=== PATIENT | female | born 1985 | race Caucasian/White ===

== ENCOUNTER 2017-02-08 19:28 | Emergency (ER) | payer OTHER, MEDICAID ==
[~2017-02-08] VITALS: Ht 170.2 cm; Wt 103.3 kg
[2017-02-08] MEDS ORDERED: SODIUM CHLORIDE 0.9% 1,000 ML IV ONE (19:47)
[2017-02-08] MEDS ORDERED: SODIUM CHLORIDE 0.9% 1,000ML IVBOLUS ONE (20:00)
[2017-02-08] MEDS ORDERED: ONDANSETRON 2MG/ML, 2ML IVPush ONE (20:00)
[2017-02-08] MEDS ORDERED: PREN1TAB27 PO (20:14)
[2017-02-08 20:16] LABS: BLOOD UREA NITROGEN 17 mg/dL (7-18)
[2017-02-08] MEDS ORDERED: ONDANSETRON 2MG/ML, 2ML ONE (20:42)
[2017-02-08] MEDS ORDERED: CEFTRIAXONE PMX 1GM/50ML 50 ML ONE (21:53)
[2017-02-08] MEDS ORDERED: CEFTRIAXONE PMX 1GM/50ML 50 ML IV ONE (22:00)
[2017-02-08 23:43] VITALS: BP 105/56
== END 2017-02-08 23:34 | disposition home or self-care (01) ==
LOC: ED 23:03
DX: O20.0 Threatened abortion (principal); Z3A.08 8 weeks gestation of pregnancy; N39.0 Urinary tract infection, site not specified
CPT/HCPCS: 36415; 76801; 80048; 81001; 82040; 84702; 85025; 86901; 87086; 96361; 96365; 96375; 99285; J0696; J2405; J7030

== ENCOUNTER 2017-02-12 11:17 | Emergency (ER) | payer OTHER, MEDICAID ==
[~2017-02-12] VITALS: Ht 167.6 cm; Wt 103.0 kg
[~2017-02-12 11:17] MED LIST: PREN1TAB27 PO
[2017-02-12] MEDS ORDERED: SODIUM CHLORIDE FLUSH 10ML SYR IVF ONE (12:30)
[2017-02-12] MEDS ORDERED: SODIUM CHLORIDE 0.9% 1,000ML IVBOLUS ONE (12:30)
[2017-02-12] MEDS ORDERED: ONDANSETRON 2MG/ML, 2ML IVPush ONE (13:00)
[2017-02-12] MEDS ORDERED: FAMOTIDINE 20 MG/2 ML IVPush ONE (13:00)
[2017-02-12 13:11] LABS: BLOOD UREA NITROGEN 10 mg/dL (7-18)
[2017-02-12 13:28] LABS: ASPARTATE AMINO TRANSFERASE 12 U/L (15-37)
[2017-02-12] MEDS ORDERED: ONDANSETRON 2MG/ML, 2ML ONE (13:34)
[2017-02-12] MEDS ORDERED: FAMOTIDINE 20 MG/2 ML ONE (13:34)
[2017-02-12 16:58] LABS: PATH.CAST-FLAG NOT PRESENT; SPERM-FLAG NOT PRESENT; SRC-FLAG NOT PRESENT; XTAL-FLAG NOT PRESENT; YLC-FLAG NOT PRESENT
[2017-02-12 17:51] VITALS: BP 128/55
== END 2017-02-12 17:53 | disposition home or self-care (01) ==
LOC: ED 14:49
DX: O26.891 Other specified pregnancy related conditions, first trimester (principal); R30.0 Dysuria; R10.2 Pelvic and perineal pain; M54.5 Low back pain; R31.9 Hematuria, unspecified; G43.909 Migraine, unspecified, not intractable, without status migrainosus; Z3A.09 9 weeks gestation of pregnancy
CPT/HCPCS: 36415; 76770; 76801; 80053; 81001; 84702; 85025; 86901; 87086; 96361; 96374; 96375; 99285; J2405; J7030; S0028